=== PATIENT | female | born 1935 | race Caucasian/White ===

== ENCOUNTER → 2017-06-22 | Outpatient (CLI) | payer MEDICARE, BC ==
--- NOTE | 2017-06-22 12:20 | CT ---
EXAMINATION TYPE: CT brain wo con DATE OF EXAM: 06/22/2017 COMPARISON: NONE at this location. INDICATION: Memory loss and history of breast cancer DLP: 1121 mGycm, Automated exposure control for dose reduction was used. CONTRAST: None, abnormal labs. CT of the brain is performed utilizing 3 mm thick sections through the posterior fossa and 3 mm thick sections through the remaining calvarium. Study is performed within 24 hours of arrival to the hosp ital. No abnormal hyperdensity is present to suggest an acute intracranial hemorrhage. No mass lesion is evident. No acute infarcts are evident. Periventricular white matter hypodensity is present, likely on the bas is of chronic white matter ischemic changes. Ventricles and sulci are slightly prominent for the patient age. Paranasal sinuses and mastoid air cells within the [id number] are clear. Bone windows appear unrem arkable without suspicious lytic lesions. IMPRESSIONS: 1. Atrophy with Chronic appearing white matter ischemic type changes. 2. No suspicious changes suggestive for metastatic disease. 3. Given the patient's abnormal renal function contrast study was not performed. If closer evaluatio n is required, MRI would be recommended.
== END | disposition home or self-care (01) ==
LOC: RADCTMAIN 10:30
PROVIDERS: ATTEND Internal Medicine Hematology & Oncology
DX: G31.9 Degenerative disease of nervous system, unspecified (principal); G93.89 Other specified disorders of brain
CPT/HCPCS: 36415; 70450; 82565; 84520

== ENCOUNTER → 2019-04-16 | Outpatient (CLI) | payer MEDICARE, BC ==
--- NOTE | 2019-04-16 11:27 | MM ---
Reason for exam: additional evaluation requested from prior study. Last mammogram was performed 3 years and 8 months ago. History: Patient is postmenopausal, has history of colon cancer at age 77, has history of breast cancer at age 62, and history of other cancer. Benign excisional biopsy of the right breast, July 13, 1998. Malignant excisional biopsy of the right breast, July 02, 1998. Lumpectomy of the right breast. Radiation therapy of the right breast. Took estrogen for 8 years. Took progesterone for 8 years. Took tamoxifen for 5 years. Physical Findings: Nurse Summary: 1cm nodule in the right breast at 11 o'clock (nurse mj). MG Diagnostic Mammo w CAD MARY Bilateral CC and MLO view(s) were taken. Prior study comparison: August 21, 2015, bilateral MG diagnostic mammo w CAD MARY. August 18, 2014, bilateral MG diagnostic mammo w CAD MARY. The breast tissue is heterogeneously dense. This may lower the sensitivity of mammography. Benign appearing bilateral calcifications. Post therapy change on the right. These results were verbally communicated with the patient and result sheet given to the patient on 04/16/19. ASSESSMENT: Incomplete: need additional imaging evaluation, BI-RAD 0 RECOMMENDATION: Ultrasound of the right breast. (superior, 11-3 o'clock)
--- NOTE | 2019-04-16 11:28 | USB ---
Reason for exam: additional evaluation requested from abnormal screening. History: Patient is postmenopausal, has history of colon cancer at age 77, has history of breast cancer at age 62, and history of other cancer. Benign excisional biopsy of the right breast, July 13, 1998. Malignant excisional biopsy of the right breast, July 02, 1998. Lumpectomy of the right breast. Radiation therapy of the right breast. Took estrogen for 8 years. Took progesterone for 8 years. Took tamoxifen for 5 years. US Breast Limited RT Right limited breast ultrasound including focal area of concern, retroareolar and axilla demonstrates no cystic or solid lesion seen. No suspicious findings. These results were verbally communicated with the patient and result sheet given to the patient on 04/16/19. ASSESSMENT: Negative, BI-RAD 1 RECOMMENDATION: Follow-up diagnostic mammogram of both breasts in 1 year.
== END ==
LOC: RADMAMWWP 09:29
PROVIDERS: ATTEND Internal Medicine Hematology & Oncology
DX: Z08 Encounter for follow-up examination after completed treatment for malignant neoplasm (principal); R92.8 Other abnormal and inconclusive findings on diagnostic imaging of breast; Z85.3 Personal history of malignant neoplasm of breast
CPT/HCPCS: 77066

== ENCOUNTER 2023-01-16 18:14 | Observation (INO) | payer MEDICARE ==
[2023-01-16] MEDS ORDERED: ACETAMINOPHEN TAB 500 MG TAB PO STA (18:40)
[2023-01-16] MEDS ORDERED: BACITRACIN OINT 1 EACH PACKET TOPICAL ONE (18:41)
[2023-01-16 19:30] LABS: Basophils % (A) 0 %; Eosinophils % (A) 0 %; HCT 40.9 % (34.0-46.0); HGB 13.6 gm/dL (11.4-16.0); Lymphocytes # (A) 0.6 k/uL (1.0-4.8); Lymphocytes % (A) 6 %; MCH 32.3 pg (25.0-35.0); MCHC 33.2 g/dL (31.0-37.0); MCV 97.2 fL (80.0-100.0); Mean Platelet Volume 8.5; Monocytes # (A) 0.6 k/uL (0-1.0); Monocytes % (A) 6 %; Neutrophils # (A) 8.5 k/uL (1.3-7.7); Neutrophils % (A) 85 %; Platelet Count 187 k/uL (150-450); RBC 4.21 m/uL (3.80-5.40); WBC 9.9 k/uL (3.8-10.6)
[2023-01-16 19:38] LABS: Albumin 4.6 g/dL (3.5-5.0); Potassium 4.9 mmol/L (3.5-5.1); Total Bilirubin 0.5 mg/dL (0.2-1.3); Total Protein 7.6 g/dL (6.3-8.2)
[2023-01-16 19:44] LABS: Partial Thromboplastin Time 25.5 sec (22.0-30.0); Prothrombin Time 10.6 sec (9.0-12.0)
--- NOTE | 2023-01-16 19:53 | XR ---
EXAMINATION TYPE: XR shoulder complete BILAT DATE OF EXAM: 01/16/2023 COMPARISON: NONE HISTORY: Pain TECHNIQUE: 3 views each shoulder FINDINGS: There is narrowing of the glenohumeral joint spaces. There is spurring of the glenoid tracy and 8 humeral heads. Joint space narrowing is more severe on the right side. No fracture seen. There is densely calcified granulomata over the right axillary region. IMPRESSION: Calcified granulomata at the right axilla. 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 No fracture seen.
--- NOTE | 2023-01-16 20:03 | CT ---
EXAMINATION TYPE: CT brain wo con DATE OF EXAM: 01/16/2023 COMPARISON: 06/22/2017 HISTORY: pain after fall. AMS. CT DLP: 1099.4 mGycm Automated exposure control for dose reduction was used. Images obtained of the brain without contrast. There is minimal hypodensity in the periventricular white matter. There is mild enlargement of the ve ntricles. There is cerebral cortical atrophy. There is no mass effect or midline shift. No sign of in tracranial hemorrhage. Calvarium is intact. IMPRESSION: Cerebral atrophy and mild hydrocephalus. No acute intracranial abnormality. No adverse change compare d to the old exam.
[2023-01-16] MEDS ORDERED: SODIUM CHLORIDE 0.9% 500 ML IV STA (20:17)
[2023-01-16] MEDS ORDERED: SODIUM CHLORIDE 0.9% 1,000 ML IV STA (20:17)
--- NOTE | 2023-01-16 20:17 | ED ---
General Adult HPI - General Chief complaint: Fall Stated complaint: Fall, Shoulder Injury Time Seen by Provider: 01/16/23 18:31 Source: patient, family, EMS Mode of arrival: EMS Limitations: no limitations - History of Present Illness Initial comments: This 87-year-old female presents with 2 falls at her adult foster care facility today. She apparently has a independent living type of arrangement. She does have a history of Alzheimer's disease. The staff found her on the ground earlier. She then apparently fell and son found her on the ground in the bathroom. She is complaining of bilateral shoulder pain. She does have abrasions to her knees and bilateral arm skin tears as well. These falls were unwitnessed and we do not know if she hit her head. She is denying any other areas of pain. History is limited due to patient's dementia. Son is concerned as to why she fell twice today as she normally does not fall. She is not on any blood thinners. There is no known loss of consciousness but once again follows unwitnessed. No other identifiable complaints or modifying factors. - Related Data Home Medications Medication Instructions Recorded Confirmed No Known Home Medications 01/16/23 01/16/23 Allergies Allergy/AdvReac Type Severity Reaction Status Date / Time No Known Allergies Allergy Verified 01/16/23 19:54 Review of Systems ROS Statement: Those systems with pertinent positive or pertinent negative responses have been documented in the HPI. ROS Other: All systems not noted in ROS Statement are negative. Past Medical History Past Medical History: Unable to Obtain History of Any Multi-Drug Resistant Organisms: None Reported Past Surgical History: Unable to Obtain Past Psychological History: Unable to Obtain Past Drug Use History: None Reported General Exam - General Exam Comments Initial Comments: GENERAL: The patient is well nourished and well hydrated. VITAL SIGNS: Heart rate, blood pressure, respiratory rate reviewed as recorded in nurse's notes. EYES: Pupils are round and reactive. Extraocular movements are intact. No conjunctival / lid redness or swelling. ENT: No external evidence of injury, swelling, or ecchymosis. Airway is patent. Throat is clear. Decreased hearing identified. NECK: Nontender. No swelling or evidence of injury. No subcutaneous emphysema. Trachea is midline. No thyroid mass. HEART: Regular rate and rhythm. Good peripheral pulses. LUNGS/CHEST: Breath sounds clear and equal bilaterally. No rales, rhonchi, or wheezes. No ecchymosis, subcutaneous emphysema, or tenderness. ABDOMEN: Abdomen soft without tenderness. No palpable masses or organomegaly. No peritoneal signs. No abdominal wall swelling or ecchymosis. EXTREMITIES: No extremity tenderness. Normal muscle tone and function. No thoracolumbar tenderness. NEUROLOGIC: Sensation is grossly intact. Cranial nerve exam reveals face is symmetrical, tongue is midline, speech is clear. SKIN: No ecchymosis is noted. No induration or masses noted. Skin tears noted to the left elbow region and right arm. Abrasions noted to bilateral knees. PSYCHIATRIC: Alert and pleasant. Limitations: no limitations Course Vital Signs 01/16/23 19:18 Temperature 97.9 F Pulse Rate 89 Respiratory 18 Rate Blood Pressure 127/67 O2 Sat by Pulse 98 Oximetry Medical Decision Making - Medical Decision Making Was pt. sent in by a medical professional or institution (, PA, FISH HATCHERY INSPECTOR, urgent care, hospital, or jail...) When possible be specific @ -[No] Did you speak to anyone other than the patient for history (EMS, parent, family, police, friend...)? What history was obtained from this source @ -History is obtained from the son who is present. He was not present when the patient fell but is able to give some additional history. Did you review nursing and triage notes (agree or disagree)? Why? @ -[I reviewed and agree with nursing and triage notes] Were old charts reviewed (outside hosp., previous admission, EMS record, old EKG, old radiological studies, urgent care reports/EKG's, jail records)? Report findings @ -[No old charts were reviewed] Differential Diagnosis (chest pain, altered mental status, abdominal pain women, abdominal pain men, vaginal bleeding, weakness, fever, dyspnea, syncope, headache, dizziness, GI bleed, back pain, seizure, CVA, palpatations, mental health, musculoskeletal)? @ -Dehydration, acute kidney injury, infection, sepsis, multiple falls, head injury, shoulder fracture EKG interpreted by me (3pts min.). @ -EKG is interpreted by myself. This shows a sinus tachycardia at a rate of 110. There is no acute ST or T-wave changes identified. The intervals are all normal. X-rays interpreted by me (1pt min.). @ -X-rays are interpreted by myself in the bilateral shoulder x-ray shows evidence of osteoarthritis with a calcification in the right axilla but no acute fracture noted. Radiologist does agree. CT interpreted by me (1pt min.). @ -The scan is interpreted by radiologist and does not show any acute process. There is some hydrocephalus but this appears to be chronic. U/S interpreted by me (1pt. min.). @ -[None done] What testing was considered but not performed or refused? (CT, X-rays, U/S, labs)? Why? @ -[None] What meds were considered but not given or refused? Why? @ -Narcotic pain medications were considered but patient refused as the pain is not that severe. Tylenol is ordered. Did you discuss the management of the patient with other professionals (professionals i.e. , PA, FISH HATCHERY INSPECTOR, lab, RT, psych nurse, long term care social worker, tool grinding technician, teacher, tactical debriefer officer, family service caseworker)? Give summary @ -Case will be discussed with primary care in the near future and patient will be admitted for further treatment. Was smoking cessation discussed for >3mins.? @ -[No] Was critical care preformed (if so, how long)? @ -[No] Were there social determinants of health that impacted care today? How? (Homelessness, low income, unemployed, alcoholism, drug addiction, transportation, low edu. Level, literacy, decrease access to med. care, long-term, rehab)? @ -Patient is demented and this does impacted history of present illness. It also impact ability to go back to her facility as she must be stable with ambula tion prior to being discharged back to the assisted living facility which is relatively independent. Was there de-escalation of care discussed even if they declined (Discuss DNR or withdrawal of care, Hospice)? DNR status @ -[No] What co-morbidities impacted this encounter? (DM, HTN, Smoking, COPD, CAD, Cancer, CVA, ARF, Chemo, Hep., AIDS, mental health diagnosis, sleep apnea, morbid obesity)? @ -Dementia, hydrocephalus Was patient admitted / discharged? Hospital course, mention meds given and route, prescriptions, significant lab abnormalities, going to OR and other pertinent info. @ -The laboratory came back showing evidence of suspected dehydration with decreased CO2. The creatinine has significantly elevated as compared to previous records. It is felt as though patient would benefit from IV fluids and these are administered. It is felt as though this potentially could be the cause of her weakness and recurrent falls. It is felt as though she would benefit from admission to the hospital for further treatment in this regard. Son is agreeable and case will be discussed with primary care in the near future. Her wounds were cleansed and dressed. Undiagnosed new problem with uncertain prognosis? @ -[No] Drug Therapy requiring intensive monitoring for toxicity (Heparin, Nitro, Insulin, Cardizem)? @ -[No] Were any procedures done? @ -[No] Diagnosis/symptom? @ -Recurrent falls, weakness, dehydration, acute kidney injury, possible head injury, shoulder contusions, arthritis Acute, or Chronic, or Acute on Chronic? @ -Acute Uncomplicated (without systemic symptoms) or Complicated (systemic symptoms)? @ -Complicated Side effects of treatment? @ -[No] Exacerbation, Progression, or Severe Exacerbation? @ -[No] Poses a threat to life or bodily function? How? (Chest pain, USA, NV, pneumonia, PE, COPD, DKA, ARF, appy, cholecystitis, CVA, Diverticulitis, Homicidal, Suicidal, threat to staff... and all critical care pts) @ -[No] - Lab Data Result diagrams: 01/16/23 19:15 01/16/23 19:15 Lab Results 01/16/23 01/16/23 01/16/23 Range/Units 19:15 19:15 19:15 WBC 9.9 (3.8-10.6) k/uL RBC 4.21 (3.80-5.40) m/uL Hgb 13.6 (11.4-16.0) gm/dL Hct 40.9 (34.0-46.0) % MCV 97.2 (80.0-100.0) fL MCH 32.3 (25.0-35.0) pg MCHC 33.2 (31.0-37.0) g/dL RDW 14.0 (11.5-15.5) % Plt Count 187 (150-450) k/uL MPV 8.5 Neutrophils % 85 % Lymphocytes % 6 % Monocytes % 6 % Eosinophils % 0 % Basophils % 0 % Neutrophils # 8.5 H (1.3-7.7) k/uL Lymphocytes # 0.6 L (1.0-4.8) k/uL Monocytes # 0.6 (0-1.0) k/uL Eosinophils # 0.0 (0-0.7) k/uL Basophils # 0.0 (0-0.2) k/uL PT 10.6 (9.0-12.0) sec INR 1.0 (<1.2) APTT 25.5 (22.0-30.0) sec Sodium 139 (137-145) mmol/L Potassium 4.9 (3.5-5.1) mmol/L Chloride 108 H (98-107) mmol/L Carbon Dioxide 17 L (22-30) mmol/L Anion Gap 14 mmol/L BUN 43 H (7-17) mg/dL Creatinine 2.29 H (0.52-1.04) mg/dL Est GFR (CKD-EPI)AfAm 21 (>60 ml/min/1.73 sqM) Est GFR (CKD-EPI)NonAf 18 (>60 ml/min/1.73 sqM) Glucose 133 H (74-99) mg/dL Calcium 9.0 (8.4-10.2) mg/dL Total Bilirubin 0.5 (0.2-1.3) mg/dL AST 30 (14-36) U/L ALT 20 (4-34) U/L Alkaline Phosphatase 77 (38-126) U/L Troponin I (0.000-0.034) ng/mL Total Protein 7.6 (6.3-8.2) g/dL Albumin 4.6 (3.5-5.0) g/dL 01/16/23 Range/Units 19:15 WBC (3.8-10.6) k/uL RBC (3.80-5.40) m/uL Hgb (11.4-16.0) gm/dL Hct (34.0-46.0) % MCV (80.0-100.0) fL MCH (25.0-35.0) pg MCHC (31.0-37.0) g/dL RDW (11.5-15.5) % Plt Count (150-450) k/uL MPV Neutrophils % % Lymphocytes % % Monocytes % % Eosinophils % % Basophils % % Neutrophils # (1.3-7.7) k/uL Lymphocytes # (1.0-4.8) k/uL Monocytes # (0-1.0) k/uL Eosinophils # (0-0.7) k/uL Basophils # (0-0.2) k/uL PT (9.0-12.0) sec INR (<1.2) APTT (22.0-30.0) sec Sodium (137-145) mmol/L Potassium (3.5-5.1) mmol/L Chloride (98-107) mmol/L Carbon Dioxide (22-30) mmol/L Anion Gap mmol/L BUN (7-17) mg/dL Creatinine (0.52-1.04) mg/dL Est GFR (CKD-EPI)AfAm (>60 ml/min/1.73 sqM) Est GFR (CKD-EPI)NonAf (>60 ml/min/1.73 sqM) Glucose (74-99) mg/dL Calcium (8.4-10.2) mg/dL Total Bilirubin (0.2-1.3) mg/dL AST (14-36) U/L ALT (4-34) U/L Alkaline Phosphatase (38-126) U/L Troponin I 0.021 (0.000-0.034) ng/mL Total Protein (6.3-8.2) g/dL Albumin (3.5-5.0) g/dL Disposition Clinical Impression: Fall, FRANCES (acute kidney injury), Dehydration, Dementia, Skin tear, Abrasion, Shoulder strain, Shoulder arthritis, Weakness Disposition: ADMITTED IP TO THIS [facility] Condition: Fair Is patient prescribed a controlled substance at d/c from ED?: No Referrals: Yasmany Mcconnell DO [Primary Care Provider] - 1-2 days Time of Disposition: 20:17 Decision Date: 01/16/23 Decision Time: 20:17
[2023-01-16] MEDS ORDERED: ONDANSETRON 4 MG/2 ML VIAL IVP PRN (21:36)
[2023-01-16] MEDS ORDERED: ACETAMINOPHEN TAB 325 MG TAB PO PRN (21:36)
[2023-01-16] MEDS: ENOXAPARIN 40 MG/0.4 ML SYRINGE SQ SCH (23:48)
--- NOTE | 2023-01-17 02:43 | P.HPIM ---
History of Present Illness H&P Date: 01/16/23 The patient is an 87-year-old female with a PMH of Alzheimer's dementia, ileostomy (unclear cause), and chronic kidney disease, resident of an adult foster care facility who was brought into the emergency room for falls. The patient is a poor historian due to underlying Alzheimer's and thereby history supplemented the chart and from the ED provider. Attempted to contact the patient's son Abdiel ([phone]) via telephone with no response. The patient was reportedly found by the staff of her facility on the ground and after being helped up was noted to have fallen again and was found by her son. The patient had endorsed bilateral shoulder pain in the emergency room but denied any additional complaints. The falls were unwitnessed but no obvious head trauma was noted. The patient's family was concerned due to her multiple falls today as this is unusual for her. They did state however that her mentation is somewhat at baseline. The patient herself does not recall experiencing falls today. She underwent an extensive outpatient emergency room which was all reviewed including a CT brain that revealed cerebral atrophy and mild hydrocephalus with no acute abnormalities. A bilateral shoulder x-ray and revealed a calcified granuloma of the right axilla with bilateral osteoarthritis greater on the right side with no acute osseous abnormalities noted. Laboratory ventilation was remarkable for BUN 43 and creatinine 2.29 (baseline 1.5). Review of systems: Pertinent positives and negatives as discussed in HPI, a complete review of systems was performed and all other systems are negative. Physical examination: General: non toxic, no distress, appears at stated age Derm: Abrasions to her knees noted, no unusual rashes/lesions, warm Head: atraumatic, normocephalic, symmetric Eyes: EOMI, no lid lag, anicteric sclera, pupils equal round reactive to light ENT: Nose and ears atraumatic Neck: No cervical lymphadenopathy, trachea midline, supple Mouth: no lip lesion, mucus membranes dry Cardiovascular: S1S2 reg, no murmur, positive dorsalis pedis pulse bilateral, no edema Lungs: CTA bilateral, no rhonchi, no rales, no accessory muscle use Abdominal: soft, ileostomy in place with brown soft stool, nontender to palpation, no guarding Ext: muscle strength 4 out of 5 in all 4 extremities grossly, no gross muscle atrophy, no contractures, Neuro: CN II-XI grossly intact, no gross focal neuro deficits Psych: Oriented only to person and place, not oriented to time Assessment/plan FRANCES on chronic kidney disease suspect secondary to dehydration -Continue with normal saline 100 mL an hour -Check daily BMP Multiple falls, suspect debility -PT consult DVT prophylaxis -Lovenox The patient is admitted with an anticipated greater than 2 midnight stay for evaluation of FRANCES CODE STATUS: Full Code Discussed with: Patient Anticipated discharge place: [facility] Past Medical History Past Medical History: Unable to Obtain History of Any Multi-Drug Resistant Organisms: None Reported Past Surgical History: Unable to Obtain Past Psychological History: Unable to Obtain Past Drug Use History: None Reported - Past Family History Brother(s) Family Medical History: Unable to Obtain (due to mental status) Medications and Allergies Home Medications Medication Instructions Recorded Confirmed Type No Known Home Medications 01/16/23 01/16/23 History Allergies Allergy/AdvReac Type Severity Reaction Status Date / Time No Known Allergies Allergy Verified 01/16/23 19:54 Physical Exam Vitals: Vital Signs Temp Pulse Resp BP Pulse Ox 01/16/23 19:18 97.9 F 89 18 127/67 98 Intake and Output 01/16/23 01/16/23 01/17/23 14:59 22:59 06:59 Other: Weight 110 kg Results CBC & Chem 7: 01/16/23 19:15 01/17/23 03:25 Labs: Abnormal Lab Results - Last 24 Hours (Table) 01/16/23 01/16/23 Range/Units 19:15 19:15 Neutrophils # 8.5 H (1.3-7.7) k/uL Lymphocytes # 0.6 L (1.0-4.8) k/uL Chloride 108 H (98-107) mmol/L Carbon Dioxide 17 L (22-30) mmol/L BUN 43 H (7-17) mg/dL Creatinine 2.29 H (0.52-1.04) mg/dL Glucose 133 H (74-99) mg/dL
[2023-01-17 05:12] LABS: Calcium 8.6 mg/dL (8.4-10.2); Potassium 4.6 mmol/L (3.5-5.1)
[2023-01-17] MEDS: BACITRACIN OINT 1 EACH PACKET TOPICAL SCH (08:22)
[2023-01-17] MEDS: PANTOPRAZOLE 40 MG/10 ML VIAL IV SCH (08:28)
[2023-01-17] MEDS: ENOXAPARIN 40 MG/0.4 ML SYRINGE SQ SCH (09:43)
--- NOTE | 2023-01-17 10:39 | P.CNPUL ---
History of Present Illness Consult date: 01/17/23 Chief complaint: fall; dehydration History of present illness: I am seeing this patient in new consultation today 01/17/2023 in the ER room 15. This is a primary patient of Dr. Mcconnell, seen in the office. Patient is an 87-year-old female with past medical history of advanced Alzheimer's. Patient is currently resting in bed, on room air, disoriented and confused, calm, in no acute distress. Patient apparently had 2 falls at her ECF yesterday, and was brought in via EMS. Her son apparently found her on the bathroom floor. The fall was unwitnessed. She does have multiple abrasions and skin tears to bilateral knees and right arm. It is unknown at the patient and her head. No obvious trauma to head. Not on any anticoagulants at home. Brain CT non-enhanced showed no evidence of acute intracranial bleeding. There was so me cerebral atrophy and mild hydrocephalus without any change from previous examination. An x-ray of the patient's bilateral shoulders showed no acute fracture. This is where most of the patient's pain is. Patient's CBC on arrival showed WBC count of 9.9, hemoglobin 13.6, hematocrit 40.9, platelets 187,000. Patient's BMP from today shows a sodium 139, potassium 4.6, chloride 111, serum CO2 14, anion gap 14, BUN 49, creatinine 2.33, glucose 107. Mucous membranes are dry, and patient appears to be dehydrated. Normal saline is infusing at 100 mL per hour. DVT prophylaxis with Lovenox, and GI prophylaxis with Protonix. Vital signs are stable. Patient will be transferred to general medical floor once bed available. Review of Systems Unable to obtain review of systems due to patient being a poor historian Past Medical History Past Medical History: Unable to Obtain, Dementia History of Any Multi-Drug Resistant Organisms: None Reported Past Surgical History: Unable to Obtain Past Psychological History: Unable to Obtain Past Drug Use History: None Reported - Past Family History Brother(s) Family Medical History: Unable to Obtain (due to mental status) Medications and Allergies Home Medications Medication Instructions Recorded Confirmed Type No Known Home Medications 01/16/23 01/16/23 History Allergies Allergy/AdvReac Type Severity Reaction Status Date / Time No Known Allergies Allergy Verified 01/16/23 19:54 Physical Exam Vitals: Vital Signs Temp Pulse Resp BP Pulse Ox 01/17/23 07:29 98.2 F 72 14 115/69 96 01/17/23 05:00 70 19 101/39 96 01/16/23 19:18 97.9 F 89 18 127/67 98 Intake and Output 01/16/23 01/17/23 01/17/23 22:59 06:59 14:59 Other: Weight 110 kg GENERAL EXAM: Alert, 87-year-old white female, comfortable in no apparent distress. HEAD: Normocephalic and atraumatic EYES: Normal reaction of pupils, equal size. NOSE: Clear with pink turbinates. THROAT: No erythema or exudates. Mucous membranes are dry NECK: No masses, no JVD. CHEST: No chest wall deformity. LUNGS: Equal air entry with no crackles, wheeze, rhonchi or dullness. On room air. No conversational dyspnea or accessory muscle use.. CVS: S1 and S2 normal with no audible murmur, regular rhythm. No extra heart sounds ABDOMEN: No hepatosplenomegaly, active bowel sounds, no guarding or rigidity. SPINE: No scoliosis or deformity SKIN: No rashes. Dressing to right arm is clean, dry, intact CENTRAL NERVOUS SYSTEM: No focal deficits, tone is normal in all 4 extremities. Patient is oriented only to self. She is quite confused but calm EXTREMITIES: There is no peripheral edema, clubbing, or cyanosis. Peripheral pulses are intact. Results - Laboratory Findings CBC and BMP: 01/16/23 19:15 01/17/23 03:25 PT/INR, D-dimer PT 10.6 sec (9.0-12.0) 01/16/23 19:15 INR 1.0 (<1.2) 01/16/23 19:15 Abnormal lab findings: Abnormal Labs 01/16/23 01/16/23 01/17/23 19:15 19:15 03:25 Neutrophils # 8.5 H Lymphocytes # 0.6 L Chloride 108 H 111 H Carbon Dioxide 17 L 14 L BUN 43 H 49 H Creatinine 2.29 H 2.33 H Glucose 133 H 107 H Assessment and Plan Assessment: Frequent falls, found down, with unknown downtime. Patient not on any antico agulants. Nonenhanced brain CT did not show any evidence of intracranial hemorrhage or midline shift. Acute on chronic kidney disease suspect secondary to dehydration Mild hyperchloremic, anion gap, metabolic acidosis secondary to above Alzheimer's. Patient currently resides at [facility]. Plan: Patient's medications and labs were reviewed Continue IV hydration with normal saline 100 mL per hour Fall precautions Lovenox for DVT prophylaxis Protonix for GI prophylaxis We will continue to follow I have personally seen and examined the patient, performed the documentation and the assessment and plan as written. Number of minutes spent on the visit:20 Time with Patient: Greater than 30
--- NOTE | 2023-01-17 10:57 | US ---
EXAMINATION TYPE: US kidneys/renal and bladder DATE OF EXAM: 01/17/2023 COMPARISON: NONE CLINICAL HISTORY: FRANCES.frances, dehydrated EC patient EXAM MEASUREMENTS: Right Kidney: 9.5 x 4.2 x 4.4 cm Left Kidney: 7.7 x 2.7 x 3.3 cm Right Kidney: No hydronephrosis or masses seen ,cortical thinning. Left Kidney: Small in size, difficult to view, no hydronephrosis or masses seen cortical thinning. Bladder: wnl There is no evidence for hydronephrosis at this point in time. No nephrolithiasis is seen. No sharonda s are identified. The urinary bladder is anechoic. Bilateral ureteral jets are seen. IMPRESSION: Medical renal disease.
--- NOTE | 2023-01-17 16:43 | P.PN ---
Subjective Progress Note Date: 01/17/23 (delayed charting seen at 1015) Patient is an 87-year-old female with Alzheimer dementia, ileostomy, and chronic kidney disease who was brought to the ER for recurrent falls. She underwent an extensive evaluation. Head CT showed cerebral atrophy with mild hydrocephalus. Bilateral shoulder x-ray was negative for any acute process. Initial laboratory analysis was remarkable for carbon dioxide of 17, BUN 43, creatinine 2.29, glucose of 133. Imaging: CT had-cerebral atrophy, mild hydrocephalus Shoulder [id number] granuloma in the right axilla, bilateral shoulder osteoarthritis but no fracture Patient seen and examined at bedside. She denies any pain. She denies light head edness or dizziness. She does not remember falling or coming to the hospital. Vital signs reviewed General: nontoxic, no distress, appears at stated age Cardiovascular: S1S2 reg, no murmur, positive posterior tibial pulse bilateral, Lungs: CTA bilateral, no rhonchi, no rales , no accessory muscle use Abdominal: soft, nontender to palpation, no guarding, no appreciable organomegaly Ext: no gross muscle atrophy, no edema, no contractures, dressings in place bilateral knees Neuro: CN II-XI grossly intact, no focal neuro deficits Psych: Alert, oriented to self, appropriate affect Assessment: FRANCES on CKD vs worsening of CKD Frequent falls Hyperchloremic metabolic acidosis Dementia Imaging: as above in HPI Data Review: Sodium 139, Potassium 4.6, chloride 111, BUN 43, creatinine 2.33, glucose 107 Plan: - check renal ultrasound - PT/OT evaluation - stop normal saline and start lactated rings at 100 cc/hr. - will need repeat BMP in AM to assess renal function Pulmonary note reviewed: agreed with plan of care DVT prophylaxis: Discussed with: Anticipated discharge date: Anticipated discharge place: Objective - Vital Signs Vital signs: Vital Signs Temp 98.3 F 01/17/23 14:45 Pulse 87 01/17/23 14:45 Resp 14 01/17/23 14:45 BP 125/70 01/17/23 14:45 Pulse Ox 99 01/17/23 14:45 FiO2 Intake & Output 01/16/23 01/17/23 01/17/23 18:59 06:59 18:59 Weight 110 kg 110 kg - Labs CBC & Chem 7: 01/16/23 19:15 01/17/23 03:25 Labs: Abnormal Lab Results - Last 24 Hours (Table) 01/16/23 01/16/23 01/17/23 Range/Units 19:15 19:15 03:25 Neutrophils # 8.5 H (1.3-7.7) k/uL Lymphocytes # 0.6 L (1.0-4.8) k/uL Chloride 108 H 111 H (98-107) mmol/L Carbon Dioxide 17 L 14 L (22-30) mmol/L BUN 43 H 49 H (7-17) mg/dL Creatinine 2.29 H 2.33 H (0.52-1.04) mg/dL Glucose 133 H 107 H (74-99) mg/dL
[2023-01-17] MEDS: LACTATED RINGERS 1,000 ML IV SCH (18:07)
[2023-01-18] MEDS: LACTATED RINGERS 1,000 ML IV SCH (04:02)
--- NOTE | 2023-01-18 08:42 | P.NPCON ---
History of Present Illness - Reason for Consult acute renal failure, chronic renal failure - History of Present Illness Reason for consultation: Acute kidney injury on chronic kidney disease History of present illness: Patient is a 87-year-old female seen in consultation for acute kidney injury on chronic kidney disease. Patient does not follow with nephrology outpatient. Patient's creatinine in March 2018 was 1.5 and is stable at 2.29-2.33 range this admission. Patient presents to the hospital from a foster care facility after falling twice. Patient was found on the ground initially but was later found in the bathroom. She is noted to have multiple abrasions in her extremities. Patient is not a very reliable historian but she denies any syncopal episodes. Brain CT showed no acute intracranial upper malady. Renal ultrasound showed atrophic left kidney without any hydronephrosis. I don't see any home medications listed. She is currently receiving LR at 100 mL an hour. She denies any gross hematuria. She did receive a liter bolus on admission. She is noted to be quite acidotic with a bicarbonate level of 14 as of yesterday. Blood pressure stable. Vital signs are stable. General: No acute distress. HEENT: Abrasions noted. LUNGS: No audible rhonchi or wheezes. HEART: Rate and Rhythm are regular. ABDOMEN: Soft, no distention. EXTREMITITES: No edema. Past Medical History Past Medical History: Dementia History of Any Multi-Drug Resistant Organisms: None Reported Past Surgical History: Bowel Resection Additional Past Surgical History / Comment(s): Colostomy, breast biopsy Past Anesthesia/Blood Transfusion Reactions: No Reported Reaction Past Psychological History: Unable to Obtain Smoking Status: Never smoker Past Drug Use History: None Reported - Past Family History Brother(s) Family Medical History: Unable to Obtain (due to mental status) Additional Family Medical History / Comment(s): Lung cancer Medications and Allergies Home Medications Medication Instructions Recorded Confirmed Type No Known Home Medications 01/16/23 01/16/23 History Allergies Allergy/AdvReac Type Severity Reaction Status Date / Time No Known Allergies Allergy Verified 01/16/23 19:54 Physical Exam Vitals: Vital Signs Temp Pulse Pulse Resp BP BP Pulse Ox 01/18/23 07:43 98.0 F 98 15 135/67 01/18/23 02:46 97.0 F L 87 18 137/61 95 01/17/23 19:24 99.6 F 87 18 126/69 97 01/17/23 14:45 98.3 F 87 14 125/70 99 01/17/23 14:12 97.8 F 91 18 122/55 97 01/17/23 12:11 82 18 127/61 99 Intake and Output 01/17/23 01/18/23 01/18/23 22:59 06:59 14:59 Intake Total 300 Output Total 250 200 Balance 50 -200 Intake: Oral 300 Output: Stool 250 200 Other: Voiding Method Toilet # Voids 2 3 1 # Bowel Movements 1 Weight 110 kg Results - Lab Results Most recent lab results Calcium 8.6 mg/dL (8.4-10.2) 01/17/23 03:25 01/16/23 19:15 01/17/23 03:25 Assessment and Plan Plan: Assessment: 1. Acute kidney injury versus progression of underlying chronic kidney disease. Creatinine stable at 2.32 yesterday. Creatinine in March 2018 was 1.5. 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 Renal ultrasound showed atrophic left kidney without any hydronephrosis. 2. Status post falls. 3. Metabolic acidosis secondary to acute kidney injury and IV fluids. 4. 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 Plan: Change IV fluids from LR to IV bicarb. Check urinalysis. Follow-up morning labs. Check CK level. Avoid nephrotoxins. Continue to monitor renal function and urine output. Thank you for the consultation. I will continue to follow the patient with you during her hospital stay.
[2023-01-18] MEDS ORDERED: DEXTROSE 5% IN WATER 1,000 ML with SODIUM BICARB (1 MEQ/ML) 150 ML IV SCH (08:45)
[2023-01-18] MEDS ORDERED: ENOXAPARIN 30 MG/0.3 ML SYRINGE SQ SCH (09:00)
[2023-01-18] MEDS: BACITRACIN OINT 1 EACH PACKET TOPICAL SCH (10:28)
[2023-01-18 11:01] VITALS: RESP 16
[2023-01-18] MEDS: PANTOPRAZOLE 40 MG/10 ML VIAL IV SCH (11:01)
[2023-01-18 11:08] LABS: African American GFR (CKD) 26.6 (60.0-200.0); Anion Gap 9.9 mmol/L (10.00-18.00); BUN/Creat Ratio 23.16 Ratio (12.00-20.00); Calcium 8.4 mg/dL (8.7-10.3); Carbon Dioxide 16.1 mmol/L (20.0-27.5); Potassium 4.6 mmol/L (3.5-5.5)
--- NOTE | 2023-01-18 13:23 | P.DS ---
Providers Date of admission: 01/16/23 21:43 Expected date of discharge: 01/18/23 Attending physician: Jimy Grubbs MD Consults: 01/17/23 11:46 Consult Physician Routine Consulting Provider: Iona Sharp Consult Reason/Comments: acute on chronic kidney disease Do you want consulting provider notified?: Yes Primary care physician: Yasmany Mcconnell [facility] Course: Hospital Course: Patient is an 87-year-old female with Alzheimer dementia, ileostomy, and chronic kidney disease who was brought to the ER for recurrent falls. She underwent an extensive evaluation. Head CT showed cerebral atrophy with mild hydrocephalus. Bilateral shoulder x-ray was negative for any acute process. Initial laboratory analysis was remarkable for carbon dioxide of 17, BUN 43, creatinine 2.29, glucose of 133. She was admitted and was started on iv fluids. She hadsome hyperchloremic metabolic acidosis and IV fluids were switched to lactated Ringer's. This didn't improve her acidosis. She was seen by nephrology. Case was discussed with Dr. Hopkins who recommended continued treatment of her acidosis. She was prescribed sodium bicarb 650 mg 3 times daily to take orally. She was given instructions to encourage oral fluid intake with the goal of 50 ounces daily. She will have repeat blood work in 3-5 days. She'll follow-up with Dr. Hopkins in 2-4 weeks as well as Dr. Mcconnell in 1-3 days. Imaging: CT had-cerebral atrophy, mild hydrocephalus Shoulder F-rjv-uwokenqtw granuloma in the right axilla, bilateral shoulder osteo arthritis but no fracture Patient seen and examined at bedside. She is pleasantly confused. She has no complaints currently. Vital signs reviewed and stable. General: nontoxic, no distress, appears at stated age Derm: warm, dry Head: atraumatic, normocephalic, symmetric Cardiovascular: S1S2 reg, no murmur, positive posterior tibial pulse bilateral, Lungs: CTA bilateral, no rhonchi, no rales , no accessory muscle use Abdominal: soft, nontender to palpation, no guarding, no appreciable organomegaly Ext: no gross muscle atrophy, no edema, no contractures Neuro: CN II-XI grossly intact, no focal neuro deficits Psych: Alert, oriented, appropriate affect A total of 25 minutes of time were spent preparing this complex discharge summary. Patient was discharged on 01/18/23. Patient Condition at Discharge: Fair Plan - Discharge Summary Discharge Rx Participant: No New Discharge Prescriptions: New Bacitracin Zinc/Polymyxin B [Bacitracin-Polymyxin Ointment] 1 applic TOPICAL AC-BID #15 gm Sodium Bicarbonate Tab 650 mg PO TID #90 tablet Discharge Medication List Bacitracin Zinc/Polymyxin B [Bacitracin-Polymyxin Ointment] 1 applic TOPICAL AC- BID #15 gm 01/18/23 [Rx] Sodium Bicarbonate Tab 650 mg PO TID #90 tablet 01/18/23 [Rx] Follow up Appointment(s)/Referral(s): Yasmany Mcconnell DO [Primary Care Provider] - 1-2 days Ji Hopkins DO [STAFF PHYSICIAN] - 2 Weeks Ambulatory/Diagnostic Orders: Basic Metabolic Panel [LAB.AMB] Time Frame: 3 Days, Location: None Selected Activity/Diet/Wound Care/Special Instructions: Activity: as tolerated Diet: regular. encourage oral intake with goal 50 ounces of fluid daily Wound Care: apply bacatricin twice daily to wounds and cover keep covered until healed. Special Instructions: Did well with physical and occupational therapy. Requires verbal cues related to dementia for redirection. Requires 24/7 supervision BMP in 3-[address] Hopkins Discharge Disposition: HOME SELF-CARE
--- NOTE | 2023-01-18 13:36 | P.PN ---
Subjective Progress Note Date: 01/18/23 Principal diagnosis: Frequent falls, acute on chronic kidney disease I am seeing this patient in new consultation today 01/17/2023 in the ER room 15. This is a primary patient of Dr. Mcconnell, seen in the office. Patient is an 87-year-old female with past medical history of advanced Alzheimer's. Patient is currently resting in bed, on room air, disoriented and confused, calm, in no acute distress. Patient apparently had 2 falls at her ECF yesterday, and was brought in via EMS. Her son apparently found her on the bathroom floor. The fall was unwitnessed. She does have multiple abrasions and skin tears to bilateral knees and right arm. It is unknown at the patient and her head. No obvious trauma to head. Not on any anticoagulants at home. Brain CT non-enhanced showed no evidence of acute intracranial bleeding. There was some cerebral atrophy and mild hydrocephalus without any change from previous examination. An x-ray of the patient's bilateral shoulders showed no acute fracture. This is where most of the patient's pain is. Patient's CBC on arrival showed WBC count of 9.9, hemoglobin 13.6, hematocrit 40.9, platelets 187,000. Patient's BMP from today shows a sodium 139, potassium 4.6, chloride 111, serum CO2 14, anion gap 14, BUN 49, creatinine 2.33, glucose 107. Mucous membranes are dry, and patient appears to be dehydrated. Normal saline is infusing at 100 mL per hour. DVT prophylaxis with Lovenox, and GI prophylaxis with Protonix. Vital signs are stable. Patient will be transferred to general medical floor once bed available. I am reevaluating this patient today 01/18/2023 in follow-up on the general medical floor. Patient is currently resting comfortably in bed, on room air, in no acute distress. No significant events overnight. No new chest x-ray to review. Patient's BMP from today shows an improvement in the patient's creatinine down to 1.9, BUN 44. The rest of the patient's BMP shows sodium 138, potassium 4.6, chloride 112, serum CO2 16, glucose 106. Patient continues to receive lactated Ringer's at 100 mL per hour. Nephrology was added to the case. And patient was transitioned to and sodium bicarbonate D5W at 100 mL per hour. DVT prophylaxis with Lovenox, and GI prophylaxis with Protonix. Vital signs are stable Objective - Vital Signs Vital signs: Vital Signs Temp 98.0 F 01/18/23 07:43 Pulse 98 01/18/23 07:43 Resp 16 01/18/23 10:55 BP 135/67 01/18/23 07:43 Pulse Ox 95 01/18/23 02:46 FiO2 Intake & Output 01/17/23 01/18/23 01/18/23 18:59 06:59 18:59 Intake Total 300 Output Total 250 400 Balance 50 -400 Weight 110 kg Intake: Oral 300 Output: Stool 250 400 Other: Voiding Method Toilet Toilet # Voids 2 3 3 # Bowel Movements 1 1 - Exam GENERAL EXAM: Alert, 87-year-old white female, comfortable in no apparent distress. HEAD: Normocephalic and atraumatic EYES: Normal reaction of pupils, equal size. NOSE: Clear with pink turbinates. THROAT: No erythema or exudates. Mucous membranes are dry NECK: No masses, no JVD. CHEST: No chest wall deformity. LUNGS: Equal air entry with no crackles, wheeze, rhonchi or dullness. On room air. No conversational dyspnea or accessory muscle use.. CVS: S1 and S2 normal with no audible murmur, regular rhythm. No extra heart sounds ABDOMEN: No hepatosplenomegaly, active bowel sounds, no guarding or rigidity. SPINE: No scoliosis or deformity SKIN: No rashes. Dressing to right arm is clean, dry, intact CENTRAL NERVOUS SYSTEM: No focal deficits, tone is normal in all 4 extremities. Patient is oriented only to self. She is quite confused but calm EXTREMITIES: There is no peripheral edema, clubbing, or cyanosis. Peripheral pulses are intact. - Labs CBC & Chem 7: 01/16/23 19:15 01/18/23 07:28 Labs: Abnormal Lab Results - Last 24 Hours (Table) 01/18/23 Range/Units 07:28 Chloride 112 H (96-109) mmol/L Carbon Dioxide 16.1 L (20.0-27.5) mmol/L Anion Gap 9.90 L (10.00-18.00) mmol/L BUN 44.0 H (9.0-27.0) mg/dL Creatinine 1.9 H (0.6-1.5) mg/dL Est GFR (CKD-EPI)AfAm 26.6 L (60.0-200.0) Est GFR (CKD-EPI)NonAf 23.0 L (60.0-200.0) BUN/Creatinine Ratio 23.16 H (12.00-20.00) Ratio Calcium 8.4 L (8.7-10.3) mg/dL Assessment and Plan Assessment: Frequent falls, found down, with unknown downtime. Patient not on any anticoagulants. Nonenhanced brain CT did not show any evidence of intracranial hemorrhage or midline shift. Acute on chronic kidney disease suspect secondary to dehydration, improving Mild hyperchloremic, anion gap, metabolic acidosis secondary to above, improving Alzheimer's. Patient currently resides at [facility]. Plan: Patient's medications and labs were reviewed Continue sodium bicarbonate infusion Fall precautions Lovenox for DVT prophylaxis Protonix for GI prophylaxis We will continue to follow I have personally seen and examined the patient, performed the documentation and the assessment and plan as written. Number of minutes spent on the visit:10 Time with Patient: Less than 30
[2023-01-18 13:53] VITALS: BP 109/65; PULSE 73; TEMP 98.1
[2023-01-18 14:24] LABS: Appearance,Urine Turbid (Clear); Bacteria,Urine Many /hpf; Bilirubin,Urine Negative (Negative); Blood,Urine Moderate (Negative); Calcium Oxalate Crystals,Urine Occasional /hpf; Color,Urine Light Yellow; Glucose,Urine (UA) Negative (Negative); Ketones,Urine Negative (Negative); Leukocyte Esterase,Urine Large (Negative); Nitrite,Urine Positive (Negative); Protein,Urine 1+ (Negative); RBC,Urine 42 /hpf (0-5); Specific Gravity,Urine 1.015 (1.001-1.035); Squamous Epithelial Cell,Urine 1 /hpf (0-4); Urobilinogen,Urine <2.0 mg/dL (<2.0); WBC,Urine >182 /hpf (0-5)
== END 2023-01-18 16:29 | disposition home or self-care (01) ==
LOC: EC 18:14 → 5NMEDONC 21:43 → INTOOBSV 21:43 → 5NMEDONC 23:30 → UNDODISIN 01-18 16:29
PROVIDERS: ADMIT Internal Medicine; ATTEND Internal Medicine
DX: N17.9 Acute kidney failure, unspecified (principal); I12.9 Hypertensive chronic kidney disease with stage 1 through stage 4 chronic kidney disease, or unspecified chronic kidney disease; N18.32 Chronic kidney disease, stage 3b; S51.012A Laceration without foreign body of left elbow, initial encounter; S41.111A Laceration without foreign body of right upper arm, initial encounter; S46.919A Strain of unspecified muscle, fascia and tendon at shoulder and upper arm level, unspecified arm, initial encounter; S80.212A Abrasion, left knee, initial encounter; S80.211A Abrasion, right knee, initial encounter; E87.20 Acidosis, unspecified; G30.9 Alzheimer's disease, unspecified; F02.80 Dementia in other diseases classified elsewhere, unspecified severity, without behavioral disturbance, psychotic disturbance, mood disturbance, and anxiety; M19.012 Primary osteoarthritis, left shoulder; L92.8 Other granulomatous disorders of the skin and subcutaneous tissue; R29.6 Repeated falls; M19.011 Primary osteoarthritis, right shoulder; E86.0 Dehydration; G91.8 Other hydrocephalus; Z80.1 Family history of malignant neoplasm of trachea, bronchus and lung; W19.XXXA Unspecified fall, initial encounter; Y92.192 Bathroom in other specified residential institution as the place of occurrence of the external cause
CPT/HCPCS: 96376; 96361 ×3; 96372 ×2; 96374; 99285; 36415; 93005; 97162; 97166; 80053; 80048 ×2; 82550; 84484; 85025; 85610; 85730; 81001; 73030; 76770; 70450; G0378 ×3; J1650 ×2; C9113 ×2